=== PATIENT | female | born 1965 | race Caucasian/White ===

== ENCOUNTER 2016-11-02 19:53 | Emergency (ER) | payer OTHER ==
[~2016-11-02] VITALS: Ht 154.9 cm; Wt 122.9 kg
[2016-11-02 19:55] VITALS: BP 131/61
[2016-11-02] MEDS ORDERED: CELE20TA PO (20:06)
[2016-11-02] MEDS ORDERED: VITA50003 PO (20:06)
[2016-11-02] MEDS ORDERED: LEVO175T2 PO (20:06)
[2016-11-02] MEDS ORDERED: SING10TA32 PO (20:06)
[2016-11-02] MEDS ORDERED: IRON65TA PO (20:06)
[2016-11-02] MEDS ORDERED: REQU1TAB14 PO (20:06)
[2016-11-02] MEDS ORDERED: VITA-193 PO (20:06)
== END 2016-11-02 21:55 | disposition home or self-care (01) ==
LOC: M ED 21:10
DX: T16.1XXA Foreign body in right ear, initial encounter (principal); T16.2XXA Foreign body in left ear, initial encounter; X58.XXXA Exposure to other specified factors, initial encounter; Y92.89 Other specified places as the place of occurrence of the external cause; Y93.9 Activity, unspecified; Y99.9 Unspecified external cause status; Z97.4 Presence of external hearing-aid; Z79.899 Other long term (current) drug therapy; Z88.5 Allergy status to narcotic agent; Z88.8 Allergy status to other drugs, medicaments and biological substances